=== PATIENT | male | born 1980 | race Caucasian/White ===

== ENCOUNTER 2019-10-12 16:34 | Emergency (ER) | payer MEDICARE, MEDICAID ==
[2019-10-12] MEDS ORDERED: Albuterol HFA INHALER* 8 gm MDI INH ONE (17:16)
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
[2019-10-12 17:51] VITALS: BP 216/123
== END 2019-10-12 17:54 | disposition home or self-care (01) ==
LOC: UCCORT 16:34
DX: J40 Bronchitis, not specified as acute or chronic (principal); I10 Essential (primary) hypertension; Z91.14 Patient's other noncompliance with medication regimen; Z88.0 Allergy status to penicillin; F17.210 Nicotine dependence, cigarettes, uncomplicated
CPT/HCPCS: 99202; A9270-GY; G0463